=== PATIENT | male | born 2000 | race American Indian/Alaskan Native ===

== ENCOUNTER 2020-06-14 23:12 | Emergency (ER) | payer MEDICAID, OTHER ==
--- NOTE | 2020-06-15 00:47 | Emergency Department Report ---
ED General Adult HPI - General Chief complaint: Neck Pain/Injury Stated complaint: LEFT SIDE NECK PAIN/NODULE Time Seen by Provider: 06/15/20 00:11 Source: patient Mode of arrival: Ambulatory Limitations: No Limitations - History of Present Illness Initial comments: 19-year-old male noted to emerge department complaining of a few day history of progressively worsening and painful masses to left neck of unknown etiology reports no odynophagia or dysphasia no hemoptysis no hematemesis no hematochezia. No fevers, chills, sweats no type B symptoms. Radiation: non-radiation Quality: dull Improves with: none Worsens with: none Associated Symptoms: denies: confusion, chest pain, cough, malaise, nausea/vomiting, rash, seizure, syncope, weakness - Related Data Previous Rx's Medication Instructions Recorded Last Taken Type Acetaminophen with Codeine 1 each PO Q6HR PRN #10 tablet 03/24/16 Unknown Rx [Acetaminophen-Codeine #2 TAB] cephALEXin [Keflex] 500 mg PO Q12HR #20 cap 03/24/16 Unknown Rx Sulfamethoxazole/Trimethoprim 1 each PO BID #20 tablet 04/06/16 Unknown Rx [Bactrim DS TAB] Amoxicillin/Potassium Clav 1 each PO BID #20 tablet 06/15/20 Unknown Rx [Augmentin 875-125 Tablet] Allergies Allergy/AdvReac Type Severity Reaction Status Date / Time No Known Allergies Allergy Verified 03/24/16 15:50 ED Review of Systems ROS: Stated complaint: LEFT SIDE NECK PAIN/NODULE Other details as noted in HPI Comment: All other systems reviewed and negative ED Past Medical Hx - Past Medical History Previous Medical History?: No - Surgical History Past Surgical History?: No - Social History Smoking Status: Never Smoker - Medications Home Medications: Home Medications Medication Instructions Recorded Confirmed Last Taken Type Acetaminophen with Codeine 1 each PO Q6HR PRN #10 tablet 03/24/16 Unknown Rx [Acetaminophen-Codeine #2 TAB] cephALEXin [Keflex] 500 mg PO Q12HR #20 cap 03/24/16 Unknown Rx Sulfamethoxazole/Trimethoprim 1 each PO BID #20 tablet 04/06/16 Unknown Rx [Bactrim DS TAB] Amoxicillin/Potassium Clav 1 each PO BID #20 tablet 06/15/20 Unknown Rx [Augmentin 875-125 Tablet] ED Physical Exam - General Limitations: No Limitations General appearance: alert, in no apparent distress - Head Head exam: Present: atraumatic, normocephalic - Eye Eye exam: Present: normal appearance, PERRL, EOMI Pupils: Present: normal accommodation - ENT ENT exam: Present: normal exam, mucous membranes moist, TM's normal bilaterally, other (Airway patent tongue and uvula midline) - Neck Neck exam: Present: normal inspection, full ROM, lymphadenopathy (Superficial cervical lymphadenopathy). Absent: tenderness - Respiratory Respiratory exam: Present: normal lung sounds bilaterally. Absent: respiratory distress, wheezes, rales, chest wall tenderness, accessory muscle use - Cardiovascular Cardiovascular Exam: Present: regular rate, normal rhythm, normal heart sounds. Absent: bradycardia, tachycardia, systolic murmur, diastolic murmur, rubs, gallop - GI/Abdominal GI/Abdominal exam: Present: soft, normal bowel sounds. Absent: tenderness, guarding, rebound, hypoactive bowel sounds, organomegaly, bruit - Rectal Rectal exam: Present: deferred - Extremities Exam Extremities exam: Present: normal inspection, full ROM, normal capillary refill - Back Exam Back exam: Present: normal inspection. Absent: CVA tenderness (R), CVA tenderness (L) - Neurological Exam Neurological exam: Present: alert, oriented X3, CN II-XII intact, normal gait - Psychiatric Psychiatric exam: Present: normal affect, normal mood. Absent: agitated, anxious, flat affect - Skin Skin exam: Present: warm, dry, intact, normal color. Absent: rash, cyanosis, diaphoretic, erythema ED Course Vital Signs 06/14/20 06/15/20 23:16 01:30 Temperature 98.3 F 98.3 F Pulse Rate 64 70 Respiratory 18 16 Rate Blood Pressure 116/62 Blood Pressure 117/64 [Left] O2 Sat by Pulse 98 98 Oximetry ED Medical Decision Making - Lab Data Result diagrams: 06/15/20 00:57 06/15/20 00:57 Critical care attestation.: If time is entered above; I have spent that time in minutes in the direct care of this critically ill patient, excluding procedure time. ED Disposition Clinical Impression: Lymphadenopathy of left cervical region Disposition: DC-01 TO HOME OR SELFCARE Is pt being admited?: No Does the pt Need Aspirin: No Condition: Stable Instructions: Lymphadenopathy (ED), Superficial Mass Needle Biopsy (ED), Adenitis (ED) Prescriptions: Amoxicillin/Potassium Clav [Augmentin 875-125 Tablet] 1 each PO BID #20 tablet Referrals: ARAVIND BUCHANAN MD [Staff Physician] - 2-3 Days
[2020-06-15 01:11] LABS: Basophils % (Auto) 0.8 % (0.0-1.8); Eosinophils # (Auto) 0.2 K/mm3 (0.0-0.4); Eosinophils % (Auto) 4.3 % (0.0-4.3); Hemoglobin 13.7 gm/dl (11.8-15.2); Lymphocytes # (Auto) 2.1 K/mm3 (1.2-5.4); Mean Corpuscular HGB Conc 34 % (32-34); Mean Corpuscular Volume 90 fl (84-94); Monocytes # (Auto) 0.8 K/mm3 (0.0-0.8); Monocytes % (Auto) 15.5 % (0.0-7.3); Platelet Count 164 K/mm3 (140-440); Red Blood Count 4.45 M/mm3 (3.65-5.03); Red Cell Distribution Width 14.1 % (13.2-15.2)
[2020-06-15 01:28] LABS: BUN/Creatinine Ratio 13; Blood Urea Nitrogen 10 mg/dL (9-20); Calcium 9.1 mg/dL (8.4-10.2); Hemolysis Index 16
[2020-06-15 01:47] VITALS: BP 117/64
== END 2020-06-15 01:35 | disposition home or self-care (01) ==
LOC: ED 23:12
DX: R59.0 Localized enlarged lymph nodes (principal); Z79.899 Other long term (current) drug therapy
CPT/HCPCS: 36415; 80048; 85025; 99283

== ENCOUNTER 2020-07-30 01:08 | Emergency (ER) | payer OTHER ==
[2020-07-30 01:28] VITALS: BP 116/73
--- NOTE | 2020-07-30 01:56 | Emergency Department Report ---
ED Psych HPI - General Chief Complaint: Medical Clearance Stated Complaint: MH EVAL Time Seen by Provider: 07/30/20 01:41 Source: patient, EMS Mode of arrival: Ambulatory - History of Present Illness Initial Comments: Patient is a 19-year-old male who presents emergency room for mental health evaluation. Patient states his mother wanted him to get evaluated because he got an argument with his little brother. Patient states he has history of bipolar depression. Patient states he sees psychiatry. Patient states he is compliant with his medications. Patient denies suicidal and homicidal ideations. Patient denies hallucinations. Patient denies delusions. Patient denies racing thoughts. Patient denies physical complaints. Patient states that his little brother and him more playing video games and and his little brother got upset. Patient states then his little brother made him upset and they got into an argument. Patient denies recent travel. Patient denies recent international travel. Patient denies exposure to the novel coronavirus. Patient denies sick contacts. Patient denies fever and chills. Patient denies cough. Patient denies diarrhea. Patient denies coming in contact with anybody with symptoms of the novel coronavirus. -: Sudden Associated Psychiatric Symptoms: none History of same: No Quality: constant Improves With: none Worsens With: none Associated Symptoms: denies other symptoms. denies: confusion, headache, shortness of breath, nausea, vomiting, syncope, insomnia - Related Data Previous Rx's Medication Instructions Recorded Last Taken Type Acetaminophen with Codeine 1 each PO Q6HR PRN #10 tablet 03/24/16 Unknown Rx [Acetaminophen-Codeine #2 TAB] cephALEXin [Keflex] 500 mg PO Q12HR #20 cap 03/24/16 Unknown Rx Sulfamethoxazole/Trimethoprim 1 each PO BID #20 tablet 04/06/16 Unknown Rx [Bactrim DS TAB] Amoxicillin/Potassium Clav 1 each PO BID #20 tablet 06/15/20 Unknown Rx [Augmentin 875-125 Tablet] Allergies Allergy/AdvReac Type Severity Reaction Status Date / Time No Known Allergies Allergy Verified 03/24/16 15:50 ED Review of Systems ROS: Stated complaint: MH EVAL Other details as noted in HPI Constitutional: denies: chills, fever Eyes: denies: eye pain, eye discharge, vision change ENT: denies: ear pain, throat pain Respiratory: denies: cough, shortness of breath, wheezing Cardiovascular: denies: chest pain, palpitations Endocrine: no symptoms reported Gastrointestinal: denies: abdominal pain, nausea, diarrhea Genitourinary: denies: urgency, dysuria Musculoskeletal: denies: back pain, joint swelling, arthralgia Skin: denies: rash, lesions Neurological: denies: headache, weakness, paresthesias Psychiatric: denies: anxiety, depression, auditory hallucinations, visual hallucinations, homicidal thoughts, suicidal thoughts Hematological/Lymphatic: denies: easy bleeding, easy bruising ED Past Medical Hx - Past Medical History Previous Medical History?: Yes Hx Psychiatric Treatment: Yes (Bipolar) - Surgical History Past Surgical History?: Yes Additional Surgical History: Eye surgery, tonsillectomy - Family History Family history: no significant - Social History Smoking Status: Never Smoker Substance Use Type: None - Medications Home Medications: Home Medications Medication Instructions Recorded Confirmed Last Taken Type Acetaminophen with Codeine 1 each PO Q6HR PRN #10 tablet 03/24/16 Unknown Rx [Acetaminophen-Codeine #2 TAB] cephALEXin [Keflex] 500 mg PO Q12HR #20 cap 03/24/16 Unknown Rx Sulfamethoxazole/Trimethoprim 1 each PO BID #20 tablet 04/06/16 Unknown Rx [Bactrim DS TAB] Amoxicillin/Potassium Clav 1 each PO BID #20 tablet 06/15/20 Unknown Rx [Augmentin 875-125 Tablet] ED Physical Exam - General Limitations: No Limitations General appearance: alert, in no apparent distress - Head Head exam: Present: atraumatic, normocephalic - Eye Eye exam: Present: normal appearance - ENT ENT exam: Present: mucous membranes moist - Neck Neck exam: Present: normal inspection - Respiratory Respiratory exam: Present: normal lung sounds bilaterally. Absent: respiratory distress - Cardiovascular Cardiovascular Exam: Present: regular rate, normal rhythm. Absent: systolic murmur, diastolic murmur, rubs, gallop - GI/Abdominal GI/Abdominal exam: Present: soft, normal bowel sounds - Rectal Rectal exam: Present: deferred - Extremities Exam Extremities exam: Present: normal inspection - Back Exam Back exam: Present: normal inspection - Neurological Exam Neurological exam: Present: alert, oriented X3 - Psychiatric Psychiatric exam: Present: normal affect, normal mood. Absent: depressed, agitated, anxious, flat affect, manic, homicidal ideation, suicidal ideation - Expanded Psychiatric Exam Expanded Focused psych exam: Absent: pressured speech, internal stimuli, echolalia, psychomotor agitation, delusional, paranoid, catatonic, mute, perseverating, restlessness, flight of ideas, loose associations - Skin Skin exam: Present: warm, dry, intact, normal color. Absent: rash ED Course Vital Signs 07/30/20 01:15 Temperature 99.0 F Pulse Rate 77 Respiratory 16 Rate Blood Pressure 116/73 [Left] O2 Sat by Pulse 97 Oximetry - Reevaluation(s) Reevaluation #1: I discussed all clinical findings with patient. I discussed plan of care with patient. Patient agrees with plan of care. Patient is stable for discharge. Patient will be discharged home. Patient given discharge instructions. Patient voiced understanding of discharge instructions. 07/30/20 01:53 ED Medical Decision Making - Medical Decision Making Patient is a 19-year-old male that presents emergency room for mental health evaluation. Patient's mother requested an the patient came to the hospital to have an evaluation done. Patient does not appear to be in an acute event. Patient does not have indications that would require a 1013 or involuntary admission. Patient not having suicidal homicidal ideations. Patient not in acute crisis. Patient does not require further emergency medical services. Patient is medically and psychiatrically cleared. Patient is stable for discharge. Patient will be discharged home. Patient will need to follow-up with a psychiatrist. - Differential Diagnosis Mental health evaluation. Bipolar depression Critical care attestation.: If time is entered above; I have spent that time in minutes in the direct care of this critically ill patient, excluding procedure time. ED Disposition Clinical Impression: Bipolar 1 disorder, Medical clearance for psychiatric admission Disposition: DC-01 TO HOME OR SELFCARE Is pt being admited?: No Does the pt Need Aspirin: No Condition: Stable Instructions: Managing Bipolar Disorder Additional Instructions: Patient to follow-up with primary care in 2 to 3 days. Patient to follow-up with psychiatrist in 2 to 3 days. Patient to rest. Patient to increase water. Patient to avoid confrontation. Patient to take Tylenol or ibuprofen as needed for pain. Patient to continue all medications. Patient to return to the ER if condition worsens, changes or new symptoms arise. Time of Disposition: 01:56
== END 2020-07-30 02:05 | disposition home or self-care (01) ==
LOC: ED 01:08
DX: F31.9 Bipolar disorder, unspecified (principal); Z04.6 Encounter for general psychiatric examination, requested by authority; Z90.89 Acquired absence of other organs; Z98.890 Other specified postprocedural states; Z79.2 Long term (current) use of antibiotics; Z79.899 Other long term (current) drug therapy